=== PATIENT | female | born 1945 | race African-American/Black ===

== ENCOUNTER 2018-06-05 16:42 | Emergency (ER) | payer SELFPAY ==
[~2018-06-05] VITALS: Ht 157.5 cm; Wt 41.0 kg
[2018-06-05 16:46] VITALS: BP 132/90
== END 2018-06-05 22:08 | disposition left against medical advice (07) ==
LOC: ER 17:16
DX: F91.9 Conduct disorder, unspecified (principal); Z53.21 Procedure and treatment not carried out due to patient leaving prior to being seen by health care provider